=== PATIENT | female | born 1990 | race Caucasian/White ===

== ENCOUNTER 2018-08-01 21:23 | Emergency (ER) | payer SELFPAY ==
[~2018-08-01] VITALS: Ht 162.6 cm; Wt 54.4 kg
--- NOTE | 2018-08-01 22:20 | ED GENERAL ADULT ---
History of Present Illness General Chief Complaint: Syncope and Near-Syncope Stated Complaint: BIBA SYNCOPE Source: patient, friend Exam Limitations: no limitations Vital Signs & Intake/Output Vital Signs & Intake/Output Vital Signs Date Time Temp Pulse Resp B/P B/P Pulse O2 O2 Flow FiO2 Mean Ox Delivery Rate 08/01 2322 98.0 61 20 115/61 97 Room Air 08/01 2144 Room Air 08/01 2130 97.7 64 20 112/56 99 Room Air ED Intake and Output 08/02 0000 08/01 1200 Intake Total Output Total Balance Patient 120 lb Weight Weight Reported by Patient Measurement Method Triage Note: BIBA FOR SYNCOPE. PT DRANK 4 BEERS, SMOKED MARIJUANA, TOOK A 150MG TRAMADOL SHE GOT FROM A FRIEND "TO HAVE FUN". PT WAS WALKING THROUGH THE [facility] PARKING LOT WHEN HER LEGS GAVE OUT FROM UNDER HER, SHE FELT WEAK, AND "BLACKED OUT A LITTLE". PT STATES THAT SHE FELL TO HER KNEES, DID NOT HIT HER HEAD OR GET INJURED. PER EMS, PT DENIES OVERDOSE ATTEMPT OR SI. Triage Nurses Notes Reviewed? yes : No Patient currently breastfeeds: No HPI: 28-year-old woman seen for evaluation after syncopal episode. Patient reports that this evening she took a tablet of tramadol that was given to her by a friend. She drank 4 average size beers reportedly 4.1% alcohol this evening and ate only a couple of cookies and a "snack wrap" from [employer] today. She did not drink any fluids today other than the beer. The patient and her friends went to [facility] this evening. She is the restroom and left to go meet her friends when she suddenly became dizzy and fell to the floor. She denies losing consciousness or hitting her head and does not believe she sustained any other injuries. She lied on the floor for moment and got up without any difficulty. EMS was contacted and patient was brought to the [facility] ED for evaluation. Presently patient states that she feels fine and would like to go home. (Yonathan EVANS,Chase) Past History Travel History Traveled to [place] past 21 day No Medical History Any Pertinent Medical History? see below for history Neurological: NONE EENT: NONE Cardiovascular: NONE Respiratory: NONE Gastrointestinal: NONE Hepatic: NONE Renal: NONE Musculoskeletal: NONE Psychiatric: NONE Endocrine: NONE Blood Disorders: NONE Cancer(s): NONE PEGA DEVELOPER/Reproductive: NONE Surgical History Surgical History: non-contributory Psychosocial History What is your primary language Danish Tobacco Use: Current Daily Use Daily Tobacco Use Amount/Type: => 5 Cigarettes daily ETOH Use: occasional use Illicit Drug Use: marijuana Family History Hx Contributory? No (Chase Mcmanus MD) Review of Systems Review of Systems Constitutional: Denies: chills, diaphoresis, fever, malaise, weakness. EENTM: Denies: blurred vision, double vision, visual changes. Respiratory: Denies: cough, short of breath, wheezing. Cardiovascular: Denies: chest pain, palpitations. GI: Denies: abdominal pain, constipation, diarrhea. (Chase Mcmanus MD) Physical Exam Physical Exam General Appearance: well developed/nourished, no apparent distress, alert, awake , comfortable Comments: General - well developed, thin young woman in no acute distress HEENT - NCAT, PERRL, EOMI, anicteric sclera, no palpable crepitus or obvious injury Neck- Supple, no JVD/HJR, no bruits, trachea midline, no step-offs Cardio - S1, S2 w/o murmurs/gallops/rubs; regular rate and rhythm Resp - Clear to auscultation bilaterally GI - Soft, nontender, nondistended, bowel sounds present Neuro - Awake and alert, CN II - XII grossly intact, strength 5/5 x 4, speech/ sensation/coordination intact, speech fluent, face symmetric Extremities - No edema, pulses intact Core Measures ACS in differential dx? No CVA/TIA Diagnosis: No Sepsis Present: No Sepsis Focused Exam Completed? No (Chase Mcmanus MD) Progress Differential Diagnoses I considered the following diagnoses in my evaluation of the patient: Dehydration, syncope, vasovagal syncope, intoxication Plan of Care: Orders Procedure Date/time Status ETHANOL 08/01 2223 Complete URINE DRUGS OF ABUSE 08/01 2220 Complete URINE 08/01 2153 Complete URINALYSIS 08/01 2153 Complete TROPONIN LEVEL 08/01 2153 Complete COMPREHENSIVE METABOLIC PANEL 08/01 2153 Complete CBC WITHOUT DIFFERENTIAL 08/01 2153 Complete EKG 08/01 2153 Active Laboratory Tests 08/01/182222: Serum Alcohol 37.0 08/01/182222: Anion Gap 10, Estimated GFR > 60, BUN/Creatinine Ratio 11.3, Glucose 105 H, Calcium 9.0, Total Bilirubin 0.4, AST 23, ALT 30, Alkaline Phosphatase 29, Troponin I < 0.01, Total Protein 7.1, Albumin 4.4, Globulin 2.7, Albumin/ Globulin Ratio 1.6, CBC w Diff NO MAN DIFF REQ, RBC 4.49, MCV 90.9, MCH 30.0, MCHC 33.0, RDW 12.7, MPV 9.1, Gran % 48.8, Lymphocytes % 43.7, Monocytes % 5.9, Eosinophils % 1.2, Basophils % 0.4, Absolute Granulocytes 3.8, Absolute Lymphocytes 3.4, Absolute Monocytes 0.5, Absolute Eosinophils 0.1, Absolute Basophils 0, Urine Opiates Screen < 100, Methadone Screen < 40, Barbiturate Screen < 60, Ur Phencyclidine Scrn < 6.00, Amphetamines Screen < 100, U Benzodiazepines Scrn < 85, Urine Cocaine Screen 240, Urine Cannabis Screen > 80.00 H, Urine Color YEL, Urine Clarity CLEAR, Urine pH 6.5, Ur Specific [place] <= 1.005, Urine Protein NEG, Urine Ketones NEG, Urine Nitrite NEG, Urine Bilirubin NEG, Urine Urobilinogen 0.2, Ur Leukocyte Esterase NEG, Ur Microscopic EXAM NOT REQUIRED, Urine Hemoglobin NEG, Urine Glucose NEG, Urine Test NEGATIVE 08/01/18 2220: Serum Alcohol Cancelled Initial ED EKG: NSR, no ST T wave changes Comments: Patient brought in by ambulance for evaluation of a syncopal episode after drinking several beers and eating very little and not drinking well during the day. Vital signs remain within normal limits. Physical examination demonstrates a pleasant young woman in no acute distress with a normal pulmonary examination and a known 2/6 pansystolic murmur in the tricuspid area with a complete neurologic examination demonstrating no focal deficits. Labs including CBC and conference of metabolic panel are within normal limits. EKG is normal sinus rhythm without any ST-T wave segment changes. Troponin I is <0.01. Urinalysis and urine toxicology are significant only for cannabis. Serum EtOH is 37. Clinically patient appears to have had an episode of syncope, likely vasovagal secondary to dehydration and consumption of alcohol. Patient admits to having an episode of syncope in the past where she was exposed to excessive heat. Patient appears stable and reports feeling well and feels safe to be discharged home. Patient has several friends who will stay with her tonight and bring her home. (Chase Mcmanus MD) Departure Departure Disposition: HOME OR SELF CARE Condition: Stable Clinical Impression Primary Impression: Vasovagal syncope Referrals: Bebo Lagunas MD Patient Has No Primary Care Dr (PCP/Family) Additional Instructions: Stay hydrated-avoid taking medications not prescribed to you. Avoid excessive consumption of alcohol. Establish care with a primary care provider for further evaluation of your episodes of passing out-a referral has been made. Return to the ED should your symptoms worsen or should you develop pain, numbness, tingling or weakness. Departure Forms: Customer Survey General Discharge Information (Chase Mcmanus MD) PA/BUSINESS ANALYST MANAGER Co-Sign Statement Statement: ED Attending supervision documentation- x I saw and evaluated the patient. I have also reviewed all the pertinent lab results and diagnostic results. I agree with the findings and the plan of care as documented in the PA's/BUSINESS ANALYST MANAGER's documentation. [] I have reviewed the ED Record and agree with the PA's/BUSINESS ANALYST MANAGER's documentation. [] Additions or exceptions (if any) to the PAs/BUSINESS ANALYST MANAGER's note and plan are summarized below: [] (Danielito EVANS,Jhonathan) Critical Care Note Critical Care Note Critical Care Time: non-applicable (Chase Mcmanus MD)
[2018-08-01 22:42] LABS: ABSOLUTE BASOPHIL COUNT 0 /CUMM (0.0-0.2); ABSOLUTE EOSINOPHIL COUNT 0.1 /CUMM (0.0-0.7); ABSOLUTE GRANULOCYTE CT 3.8 /CUMM (1.4-6.5); ABSOLUTE LYMPH COUNT 3.4 /CUMM (1.2-3.4); ABSOLUTE MONOCYTE COUNT 0.5 /CUMM (0.10-0.60); BASOPHIL % 0.4 % (0.0-2.0); EOSINOPHIL % 1.2 % (0-5); GRANULOCYTE % 48.8 % (42.2-75.2); HEMATOCRIT 40.8 % (37-47); MEAN CORPUSCULAR VOLUME 90.9 FL (81.0-99.0); MEAN PLATELET VOLUME 9.1 FL (7.4-10.4); PLATELET COUNT 237 /CUMM (130-400); RBC DISTRIBUTION WIDTH 12.7 % (11.5-14.5); RED BLOOD CELL CT 4.49 /CUMM (4.20-5.40); WHITE BLOOD CELL COUNT 7.8 /CUMM (4.8-10.8)
[2018-08-01 23:22] VITALS: BP 115/61
== END 2018-08-02 00:40 ==
LOC: ERH 21:23
PROVIDERS: Physician Assistant Medical
DX: R55 Syncope and collapse (principal); F17.210 Nicotine dependence, cigarettes, uncomplicated; F12.10 Cannabis abuse, uncomplicated; F10.10 Alcohol abuse, uncomplicated
CPT/HCPCS: 80307; 81003; 81025; 93005; 93010; G0480